=== PATIENT | female | born 1995 | race Caucasian/White ===

== ENCOUNTER 2017-05-12 22:56 | Emergency (ER) | payer BC ==
[2017-05-12] MEDS ORDERED: HYDROMORPHONE 1 MG/ML SYRINGE ONE (23:21)
[2017-05-12] MEDS ORDERED: ONDANSETRON HCL 4 MG/2 ML SOL ONE (23:21)
[2017-05-12] MEDS ORDERED: HYDROMORPHONE 1 MG/ML SYRINGE IV PRN (23:22)
[2017-05-12] MEDS ORDERED: ONDANSETRON HCL 4 MG/2 ML SOL IV ONE (23:22)
[2017-05-12] MEDS: SODIUM CHLORIDE 0.9% FLUSH 10 ML SOL IV PRN (23:22)
[2017-05-12 23:26] LABS: APPEARANCE,URINE Clear; BILIRUBIN,URINE NEGATIVE (NEGATIVE); COLOR,URINE Light yellow; GLUCOSE, URINE (UA) NEGATIVE (NEGATIVE); KETONES,URINE NEGATIVE (NEGATIVE); LEUKOCYTE ESTERASE ,URINE NEGATIVE (NEGATIVE); NITRATE,URINE NEGATIVE (NEGATIVE); OCCULT BLOOD,URINE NEGATIVE (NEG-TRACE); UROBILINOGEN,URINE 0.2 (0.2-1.0 EU)
[2017-05-12 23:34] LABS: ALBUMIN 3.5 gm/dl (3.4-5.0); BASOPHILS % (AUTO) 1 % (0-3); CALCIUM 8.7 mg/dl (8.5-10.1); EOSINOPHILS % (AUTO) 1 % (0-9); HEMATOCRIT 37 % (35-47); MEAN CORPUSCULAR HGB CONC 36.6 gm/dl (32.0-36.0); MEAN CORPUSCULAR VOLUME 84 fL (81-99); MONOCYTES % (AUTO) 6.4 % (0-12); POTASSIUM 3.7 mMol/L (3.5-5.1)
[2017-05-12] MEDS ORDERED: SODIUM CHLORIDE 0.9% 1000ML 1,000 ML IV ONE (23:36)
[2017-05-12 23:41] LABS: RBC,URINE NEGATIVE (0-3AV/HPF); WBC,URINE 0-1 (0-5AV/HPF)
[2017-05-13 00:17] VITALS: TEMP 98.3; O2SAT 99
[2017-05-13] MEDS ORDERED: KETOROLAC TROMETHAMINE 30 MG/ML SOL IV ONE ×2 (00:42→00:43)
[2017-05-13] MEDS ORDERED: KETOROLAC TROMETHAMINE 30 MG/ML SOL ONE (00:43)
[2017-05-13] MEDS: SODIUM CHLORIDE 0.9% FLUSH 10 ML SOL IV PRN (00:50)
[2017-05-13 01:07] VITALS: BP 107/42; PULSE 61; RESP 14
== END 2017-05-13 02:00 | disposition home or self-care (01) ==
LOC: ED 22:56
DX: K59.00 Constipation, unspecified (principal)
CPT/HCPCS: 99285 ×3; 80053; 81001; 85025; J1170; J1885; J2405; Q9967; 74177; 96365; 96374; 96375; 99282